=== PATIENT | female | born 1955 ===

== ENCOUNTER 2019-03-21 11:45 | Inpatient (IN) | payer OTHER ==
[~2019-03-21] VITALS: Ht 162.6 cm; Wt 180.0 kg
[2019-03-21] MEDS ORDERED: FORTAMET1000 MG (14:37)
[2019-03-21] MEDS ORDERED: GLIPIZIDE XL10 MG (14:37)
[2019-03-21] MEDS ORDERED: COZAAR100 MG (14:37)
[2019-03-21] MEDS ORDERED: TOPROL XL100 M1 (14:37)
[2019-03-21] MEDS ORDERED: HYDROCHLOROTH12.5 M1 (14:38)
[2019-03-21] MEDS ORDERED: SYNTHROID112 MCG (14:38)
[2019-03-21] MEDS ORDERED: PRAVASTATIN SOD40 MG (14:38)
== END 2019-03-28 16:07 | disposition home or self-care (01) | DRG 331 ==
LOC: O/R 11:45 → SURH 11:45 → O/R 03-25 05:20 → SURG 03-25 05:20
PROVIDERS: ADMIT Colon & Rectal Surgery
PROC: 07TB4ZZ Resection of Mesenteric Lymphatic, Percutaneous Endoscopic Approach (ICD-10-PCS; 2019-03-25)
PROC: 0DTU4ZZ Resection of Omentum, Percutaneous Endoscopic Approach (ICD-10-PCS; 2019-03-25)
PROC: 0DTF4ZZ Resection of Right Large Intestine, Percutaneous Endoscopic Approach (ICD-10-PCS; principal; 2019-03-25 21:45)
DX: D12.2 Benign neoplasm of ascending colon (principal); E11.9 Type 2 diabetes mellitus without complications; I10 Essential (primary) hypertension